=== PATIENT | male | born 1945 | race Caucasian/White ===

== ENCOUNTER 2018-09-15 16:20 | Observation (INO) | payer MEDICARE, OTHER ==
[~2018-09-15] VITALS: Ht 182.9 cm; Wt 79.1 kg
[~2018-09-15 16:20] MED LIST: ALLOPURINOL300 MG PO; ASPIRIN EC81 MG PO; CALCIUM500 M1 PO; CARAFATE1 GM PR; CLOPIDOGREL75 MG PO; ELIQUIS5 MG PO; FINASTERIDE5 MG PO; FUROSEMIDE40 MG PO; IBUPROFEN600 MG PO; INDOMETHACIN25 MG PO; INDOMETHACIN50 MG; KLOR-CON M1010 MEQ PO; LEVOTHYROXINE150 MCG PO; LIPITOR40 MG PO; LOSARTAN POTASS25 MG PO; MACRODANTIN100 MG PO; MAPAP325 MG PO; METOPROLOL SUCC25 MG PO; MULTIVITAMINS1 EAC7 PO; NITROSTAT0.4 MG SL; OXYCODON-ACETA1 EAC2 PO
[2018-09-15] MEDS ORDERED: ELIQUIS5 MG PO (16:41)
--- NOTE | 2018-09-15 19:27 | NUR ---
RECEIVED REPORT FROM EMILE ELLISON.
--- NOTE | 2018-09-15 19:35 | NUR ---
PT ARRIVED FROM ED ON STRETCHER AND WALKED TO BED. HE DENIES DIZZINESS, CHEST PAIN OR ANY DEFICITS. RR IS EVEN AND NONLABORED. HE IS ACCOMPANIED BY HIS . HE IS ORIENTED TO THE ROOM AND CALL LIGHT IS CLOSE.
--- NOTE | 2018-09-15 20:50 | NUR ---
BROUGHT PT A WARM BLANKET AND HE IS ATTACHED TO TELEMETRY AT THIS TIME. HE REQUESTED FOOR, WILL GET HIM A SANDWICH BOX. WATER IS AT BEDSIDE. CALL LIGHT IS CLOSE.
--- NOTE | 2018-09-15 22:03 | NUR ---
ASSESSMENT DONE. MEDICATION GIVEN (SEE MAR). NO DEFICITS NOTED. pt FINISHED HALF A SANDWICH. AMBULATED TO TOILET SBA. DENIES PAIN AND NAUSEA. NIH SCALE ADMINISTERED. CALL LIGHT WITHIN REACH. NO REQUESTS AT THIS TIME.
--- NOTE | 2018-09-16 00:42 | NUR ---
ROUNDED ON pt. RESTING WITH EYES CLOSED, RESPIRATIONS REGULAR. RATE = 16. CALL LIGHT WITHIN REACH.
--- NOTE | 2018-09-16 01:50 | NUR ---
VITALS AND I&OS DONE AND CHARTED. STOOD BY PT WENT INTO THE BATHROOM AND BACK TO BED. FRESH ICE WATER GIVEN. BEDSIDE TABLE AND CALL LIGHT IN REACH. PT NEEDS NOTHING AT THIS TIME.
--- NOTE | 2018-09-16 01:55 | NUR ---
CCU ALERTED TO TELE 5 NOT REGISTERING. REPLACED BATTERY. K 9 HANDLER/ DEPUTY IN ROOM, VSS. ASSESSMENT DONE. NO CHANGES FROM FIRST ASSESSMENT. CALL LIGHT WITHIN REACH. NO REQUESTS AT THIS TIME.
--- NOTE | 2018-09-16 04:30 | NUR ---
ROUNDED ON pt. RESTING WITH EYES CLOSED, RESPIRATIONS REGULAR, RATE = 16. CALL LIGHT WITHIN REACH.
--- NOTE | 2018-09-16 05:41 | NUR ---
RESTED MOST OF SHIFT. INDEPENDENT IN ROOM. NO DEFICITS NOTED. IV SL. TELE 5. HAS NOT USED CALL LIGHT.
--- NOTE | 2018-09-16 06:04 | NUR ---
ASSESSMENT DONE. pt AMBULATED TO TOILET AND BACK TO BED. VSS. I&O RECORDED. WATER REFRESHED. CALL LIGHT WITHIN REACH.
[2018-09-16] MEDS ORDERED: POTASSIUM CHLO20 ME1 PO (07:12)
[2018-09-16] MEDS ORDERED: LEVOTHYROXINE200 MCG PO (07:12)
--- NOTE | 2018-09-16 08:03 | NUR ---
PATIENT RESTING IN BED. PATIENT WALKS TO BATHROOM. PATIENT DID ORAL CARE. PATIENT BACKS TO BED. PATIENT ASKS FOR BREAKFAST. THIS LEAD ESTHETICIAN ORDERED PATIENT'S BREAKFAST. CALL LIGHT WITHIN REACH. NO OTHER NEEDS AT THIS TIME
--- NOTE | 2018-09-16 08:35 | NUR ---
PT SITTING UP AT BEDSIDE EATING BREAKFAST, WATCHING TV. DENIES PAIN, NAUSEA, OR OTHER CONCERNS. ALERT AND ORIENTED. NO SIGNS OF DEFICITS NOTED. SKIN GROSSLY INTACT. IV PATENT, DRESSING CDI. CALL LIGHT WITHIN REACH.
--- NOTE | 2018-09-16 10:01 | NUR ---
PATIENT IN BED WATCHING TV. IN ROOM. VITAL SIGNS AND I&O DONE. ICE WATER GIVEN. CALL LIGHT WITHIN REACH. NO OTHER NEEDS AT THIS TIME
[2018-09-16] MEDS ORDERED: ASPIRIN EC81 MG PO (10:25)
--- NOTE | 2018-09-16 10:50 | NUR ---
PT SITTING UP IN BED WATCHING TV. AWAITING DC TODAY. DENIES NEEDS OR CONCERNS AT THIS TIME. CALL LIGHT WITHIN REACH.
--- NOTE | 2018-09-16 11:49 | NUR ---
PATIENT SITTING UP IN BED. AND RN IN ROOM. PATIENT IS DRESS AND THE LAST VITAL SIGNS WERE OBTAINED PRIOR DISCHARGE.
--- NOTE | 2018-09-16 11:57 | EKG ---
[facility] [address] [facility] [place] [id number] Signed Accelerated Junctional rhythm Low voltage QRS Nonspecific T wave abnormality Abnormal ECG When compared with ECG of 06-OCT-2017 12:57, Junctional rhythm has replaced Atrial fibrillation Incomplete left bundle branch block is no longer present Confirmed by KUNAL HUDSON MD ([id number] on 09/16/2018 11:57:32 AM Electronically Signed By: KUNAL HUDSON MD 09/16/18 1157 PATIENT NAME: CLAY MIRANDA Electrocardiogram DATE OF : 43 PHYSICIAN: KUNAL HUDSON MD REPORT #: [id number] REPORT IS CONFIDENTIAL AND NOT TO BE RELEASED WITHOUT AUTHORIZATION
== END 2018-09-16 11:52 | disposition home or self-care (01) ==
LOC: ED 16:20 → MS 16:22
PROVIDERS: ADMIT Internal Medicine
DX: G45.9 Transient cerebral ischemic attack, unspecified (principal); R47.01 Aphasia; I48.2 Chronic atrial fibrillation; I10 Essential (primary) hypertension; I25.10 Atherosclerotic heart disease of native coronary artery without angina pectoris; E78.5 Hyperlipidemia, unspecified; N40.0 Benign prostatic hyperplasia without lower urinary tract symptoms; Z87.891 Personal history of nicotine dependence; Z85.46 Personal history of malignant neoplasm of prostate; Z86.73 Personal history of transient ischemic attack (TIA), and cerebral infarction without residual deficits; Z95.3 Presence of xenogenic heart valve; Z79.2 Long term (current) use of antibiotics; Z79.02 Long term (current) use of antithrombotics/antiplatelets; Z79.899 Other long term (current) drug therapy
CPT/HCPCS: 36415; 70450; 70496; 70498; 71045; 80048; 80053; 81001; 83735; 85025; 85610; 93005; 93010; 99285-25; G0378; Q9967

== ENCOUNTER 2020-11-24 14:16 | Emergency (ER) | payer MEDICARE, OTHER ==
[~2020-11-24] VITALS: Ht 182.9 cm; Wt 75.1 kg
[~2020-11-24 14:16] MED LIST changes: +ALLOPURINOL100 MG PO; +ATORVASTATIN CA20 MG PO; +ATORVASTATIN CA40 MG PO; +DULCOLAX5 MG PO; +IRON325 M1 PO; +LEVOTHYROXINE200 MCG PO; +MAGNESIUM250 M1 PO; +PACERONE200 MG PO; +PAIN RELIEF325 M1 PO; +PEPCID20 MG PO; +POTASSIUM CHLO20 ME1 PO; +SPIRONOLACTONE25 MG PO; +TORSEMIDE20 MG PO; +ULTRAM50 MG PO; +WARFARIN SODIUM4 MG PO
--- NOTE | 2020-11-26 13:46 | EKG ---
[facility] [address] [facility] [place] [id number] Signed Suspect arm lead reversal, interpretation assumes no reversal AV dual-paced rhythm Abnormal ECG When compared with ECG of 15-SEP-2018 16:36, Electronic ventricular pacemaker has replaced Junctional rhythm Vent. rate has increased BY 72 BPM Confirmed by AMMY GONZALEZ MD ([id number] on 11/26/2020 1:46:38 PM Electronically Signed By: AMMY GONZALEZ MD 11/26/20 1346 PATIENT NAME: CLAY MIRANDA Electrocardiogram DATE OF : 43 PHYSICIAN: AMMY GONZALEZ MD REPORT #: [id number] REPORT IS CONFIDENTIAL AND NOT TO BE RELEASED WITHOUT AUTHORIZATION
== END 2020-11-24 19:10 | disposition short-term general hospital (02) ==
LOC: ED 14:16
DX: I50.9 Heart failure, unspecified (principal); N17.9 Acute kidney failure, unspecified; Z20.822 Contact with and (suspected) exposure to COVID-19; I10 Essential (primary) hypertension; Z86.73 Personal history of transient ischemic attack (TIA), and cerebral infarction without residual deficits; I48.91 Unspecified atrial fibrillation; Z79.899 Other long term (current) drug therapy; Z79.82 Long term (current) use of aspirin; Z79.01 Long term (current) use of anticoagulants; Z85.46 Personal history of malignant neoplasm of prostate
CPT/HCPCS: 71045; 80053; 83735; 83880; 84484; 85025; 93005; 93010; 94660; 99285-25; C9803; U0003